=== PATIENT | female | born 1960 | race African-American/Black ===

== ENCOUNTER 2024-03-11 18:35 | Emergency (ER) | payer OTHER ==
[~2024-03-11] VITALS: Ht 167.6 cm; Wt 86.0 kg
--- NOTE | 2024-03-11 19:28 | DVH ---
CHEST RADIOGRAPH Indication: gen weakness Technique: Single frontal view of the chest was obtained Comparison: None FINDINGS: Lines and Tubes: Left subclavian approach port-A-Cath terminating over the proximal SVC. Lungs: Opacities of right mid and lower lung zone and left lower lung zone. Pleura: No effusion. No pneumothorax. Cardiomediastinal contours: Mild cardiomegaly with mild atherosclerotic calcification and uncoiling o f the aorta. Bones: No acute osseous abnormality. IMPRESSION: Right mid and lower lung zone with left lower lung zone opacities which may represent pneumonia in th e right clinical setting. Left subclavian approach port-A-Cath terminating over the proximal SVC.
--- NOTE | 2024-03-11 19:33 | ED.PDOC ---
History of Present Illness HPI Comments 63-year-old female came to emergency room via EMS for flu-like symptoms. Patient has history of asthma and sickle cell disease, states for the past week she has been feeling weak and lethargic, has been having flu-like symptoms, including myalgia, headaches, dizziness, nausea, vomiting, chest and abdominal discomfort. Chief Complaint: Flu like Time Seen by MD: 19:31 Primary Care Provider: UNKNOWN Reviewed Notes: Emblem Cutter Notes Allergies: Coded Allergies: Azithromycin (Verified Allergy, Unknown, 03/11/24) Information Source: Patient Mode of Arrival: EMS Severity: Moderate Timing: Days Duration: Intermittent Prehospital treatment: None Review of Systems REVIEW OF SYSTEMS: (+) fever, chills, fatigue HEENT: No sore throat, no earache, no congestion, no neck pain. Cardiac: No chest pain. No palpitations. Lungs: (+) shortness of breath, cough. GI: (+) nausea, vomiting, no diarrhea, no constipation, no abdominal pain : No dysuria, frequency, or urgency. No hematuria. Musculoskeletal: (+) joint pain , no joint swelling, no extremity edema. Skin: No rash, no itching. Neuro: (+) headache, dizziness, weakness Vital Signs Vital Signs Date Time Temp Pulse Resp B/P (MAP) Pulse Ox O2 Delivery O2 Flow Rate FiO2 03/12/24 04:00 67 23 101/48 (65) 97 03/12/24 00:00 98.0 98.0 03/11/24 22:20 Room Air* 0 21 Physical Exam General: Awake, appears lethargic No acute distress. Skin: Skin in warm, dry and intact. Appropriate color for ethnicity. Nailbeds pink with no cyanosis. HEENT: The head is normocephalic and atraumatic. Conjunctivae are clear without exudates or hemorrhage. Sclera is non-icteric. EOM are intact. No signs of nystagmus. Eyelids are normal in appearance without swelling or lesions. Oral mucosa is pink and moist Neck: The neck is supple with normal range of motion. No JVD. Cardiac: Heart rate and rhythm are normal. No murmurs, gallops, or rubs are auscultated. Respiratory: No signs of respiratory distress. Lung sounds are diminished bilaterally without rales, ronchi, or wheezes. Abdominal: Abdomen is soft, non-tender without distention. Bowel sounds are present and normoactive in all four quadrants. Extremities: Upper and lower extremities are atraumatic in appearance without d eformity or edema. Neurological: The patient is awake, alert and oriented to person, place, and time with normal speech. Speech is clear. There is no facial asymmetry. Psychiatric: Appropriate mood and affect. Good judgement and insight. No visual or auditory hallucinations. Past Medical History PAST MEDICAL HISTORY: Asthma Past Medical History (Other): Sickle cell disease, pulmonary hypertension Surgical History: Denies all surgeries INFORMATION ENGINEER History: Denies all INFORMATION ENGINEER Hx Family History Family History: Reviewed,noncontributory to illness Social History Smoker: Non-Smoker Alcohol: Denies ETOH Use Drugs: Denies Drug Use Lives In: Home Was a procedure done? Was a procedure done?: No Differential Dx Considerations may include: Anemia, electrolyte imbalance, viral syndrome, influenza, urinary tract infection, upper respiratory infection X-Ray, Labs, Meds, VS Vital Signs Date Time Temp Pulse Resp B/P (MAP) Pulse Ox O2 Delivery O2 Flow Rate FiO2 03/12/24 04:00 67 23 101/48 (65) 97 03/12/24 02:00 70 14 123/57 (79) 96 03/12/24 00:00 98.0 72 17 123/67 (85) 98 98.0 03/11/24 22:20 72 16 98 Room Air* 0 21 03/11/24 22:20 97.7 72 16 123/66 (85) 98 97.7 03/11/24 19:01 99.3 81 18 106/71 (83) 99 Lab Test 03/11/24 22:50 03/11/24 22:29 Range/Units White Blood Count 12.6 H 4.4-10.8 10^3/uL Red Blood Count 3.26 L 4.0-5.20 10^6/uL Hemoglobin 9.9 L 12.2-16.2 g/dL Hematocrit 29.1 L 36.0-46.0 % Mean Corpuscular Volume 89.3 80.0-100.0 fL Mean Corpuscular Hemoglobin 30.5 28.0-32.0 pg Mean Corpuscular Hemoglobin Concent 34.2 32.0-36.0 g/dL Red Cell Distribution Width 19.9 H 11.8-14.3 % Platelet Count 333 140-450 10^3/uL Mean Platelet Volume 7.9 6.9-10.8 fL Neutrophils (%) (Auto) 77.5 37.0-80.0 % Lymphocytes (%) (Auto) 11.9 10.0-50.0 % Monocytes (%) (Auto) 5.1 0.0-12.0 % Eosinophils (%) (Auto) 3.3 0.0-7.0 % Basophils (%) (Auto) 2.2 H 0.0-2.0 % Neutrophils # (Auto) 9.7 H 1.6-8.6 10 ^3/uL Lymphocytes # (Auto) 1.5 0.4-5.4 10 ^3/uL Monocytes # (Auto) 0.6 0-1.3 10 ^3/uL Eosinophils # (Auto) 0.4 0-0.8 10 ^3/uL Basophils # (Auto) 0.3 H 0-0.2 10 ^3/uL Nucleated Red Blood Cells 5.5 % Platelet Estimate [place] Large Platelets Few Target Cells Few Ovalocytes Few Schistocytes Few Sodium Level 136 136-145 mmol/L Potassium Level 4.4 3.5-5.1 mmol/L Chloride Level 106 98-107 mmol/L Carbon Dioxide Level 17 L 20-31 mmol/L Anion Gap 13 5-15 Blood Urea Nitrogen 44 H 9-23 mg/dL Creatinine 3.68 H 0.550-1.02 mg/dL Glomerular Filtration Rate Calc 13 >90 mL/min BUN/Creatinine Ratio 12.0 10.0-20.0 Serum Glucose 209 H 74-106 mg/dL Lactic Acid Level 1.5 0.4-2.0 mmol/L Calcium Level 9.0 8.7-10.4 mg/dL Magnesium Level 2.3 1.6-2.6 mg/dL Total Bilirubin 0.8 0.2-1.0 mg/dL Aspartate Amino Transferase (AST) 66 H 13-40 U/L Alanine Aminotransferase (ALT) 24 7-40 U/L Alkaline Phosphatase 113 46-116 U/L Troponin I High Sensitivity 4 </=34 ng/L Total Protein 7.8 5.7-8.2 g/dL Albumin 3.9 3.2-4.8 g/dL Plasma/Serum Blood Alcohol < 3.0 <10 mg/dL Influenza Type A Antigen Positive Negative Influenza Type B Antigen Negative Negative SARS-CoV-2 Antigen (Rapid) Negative NEGATIVE Current Medications Medications (Trade) Dose Ordered Sig/Nidhi Route Start Time Stop Time Status Last Admin Sodium Chloride 1,000 ml @ 1,000 mls/hr Q1H ONCE IV 03/11/24 19:00 03/11/24 19:59 DC 03/11/24 23:19 Ceftriaxone Sodium 50 ml @ 100 mls/hr ONCE ONCE IV 03/11/24 21:00 03/11/24 21:29 DC 03/11/24 23:19 Ondansetron HCl (Zofran) 4 mg ONCE ONCE IV 03/11/24 23:15 03/11/24 23:16 DC 03/11/24 23:19 Acetaminophen/ Hydrocodone Bitart ([place] 5/325MG Tab) 1 tab ONCE ONCE PO 03/11/24 23:30 03/11/24 23:31 DC 03/11/24 23:53 Sodium Chloride 1,000 ml @ 130 mls/hr Q7H42M ONCE IV 03/12/24 01:30 03/12/24 09:11 03/12/24 01:37 CHEST RADIOGRAPH Indication: gen weakness Technique: Single frontal view of the chest was obtained Comparison: None FINDINGS: Lines and Tubes: Left subclavian approach port-A-Cath terminating over the proximal SVC. Lungs: Opacities of right mid and lower lung zone and left lower lung zone. Pleura: No effusion. No pneumothorax. Cardiomediastinal contours: Mild cardiomegaly with mild atherosclerotic calcification and uncoiling of the aorta. Bones: No acute osseous abnormality. IMPRESSION: Right mid and lower lung zone with left lower lung zone opacities which may represent pneumonia in the right clinical setting. Left subclavian approach port-A-Cath terminating over the proximal SVC. X-Ray, Labs, Meds, VS Comment CHEST X-RAY: RIGHT LOWER LOBE PNEUMONIA Time of 1ST Reevaluation: 19:28 Reevaluation 1ST: Unchanged Patient Education/Counseling: Diagnosis, Treatment, Other (DIAGNOSIS AND RECOMMENDATION FOR ADMISSION) Family Education/Counseling: Diagnosis, Treatment Departure 1 Departure Time of Disposition: 20:49 Impression: Primary Impression: Right lower lobe pneumonia Additional Impressions: Acute renal failure Hyperglycemia Disposition: 02 SHORT TERM HOSPITAL Condition: Stable Comments 63-year-old female with a history of sickle cell disease and acute right lower lobe pneumonia. Antibiotics and IV fluids initiated in the emergency department. Discussed Dr. Russell with [facility] #[id number] Pending transfer to [facility] Extensive evaluation was performed in attempt to identify or rule out: (See differential diagnosis section) The following tests were ordered, and results were reviewed by me: (See diagnostic results section) The following test were independently interpreted by me: N/A I reviewed and agreed with the following test results read by other providers: N/A I reviewed the following notes from the pt's past medical encounters: (None available at this time) Additional information was gathered from interviewing the following independent historians: N/A Discussion of management or test interpretation with external physician/other qualified health child care education coordinator: N/A Addressed [ ]one or more chronic illnesses with severe exacerbation, progression, or side effects of treatment: [ ]an acute or chronic illness that poses a threat to life or bodily function: [ ] Decision regarding hospitalization or escalation of hospital level of care: Risk and benefits of admission for further treatment of patient's condition was considered. Due to patient's current clinical condition, high risk of decline and poor outcome if discharged and need for further inpatient management and monitoring, patient will be admitted to the hospital. Drug therapy requiring intensive monitoring for toxicity: N/A Parenteral controlled substances: N/A Decision regarding elective major surgery with identified patient or procedure risk factors: N/A Decision regarding emergency major surgery: N/A Decision not to resuscitate or to de-escalate care because of poor prognosis: N/A Diagnosis or treatment significantly limited by social determinants of health: N/A Decision regarding hospitalization or escalation of hospital level of care: Risks and benefits of admission for further treatment of patient's condition was considered however due to patient's stable condition patient will be discharged to follow up closely or return to care for worsening of condition or inability to follow up. Number & Complexity of Problems Addressed 1 acute or chronic illness that poses a threat to life or bodily function: Pneumonia, acute renal failure, hyperglycemia Extensive evaluation was performed to identify or rule out: Differential diagnoses considered includebut arenot limited to acute Bronchitis, Asthma, COPD, Pneumothorax, PE, CHF, Pulmonary HTN, Anemia, CO Poisoning, Methemoglobinemia, Hyperventilation, Metabolic Acidosis, Pulmonary Edema, Pneumonia, ACS, Pericardial Tamponade, Anxiety, other Amount and/or Complexity of Data to be Reviewed/Analyzed Tests reviewed: See diagnostic results section Documents reviewed: N/A Independent historian: Patient's sister at bedside Independent interpretation of tests: Chest x-ray, EKG Discussion of management or test interpretation with external physician/other qualified health child care education coordinator: Dr. Russell Risk of Complications and/or Morbidity or Mortality of Patient Management Patient was at high risk of morbidity from additional diagnostic testing or treatment Drug therapy requiring intensive monitoring for toxicity: N/A Decision regarding elective major surgery with identified patient or procedure risk factors: N/A Decision regarding emergency major surgery: N/A Decision regarding hospitalization or escalation of hospital level of care: Yes Decision not to resuscitate or to de-escalate care because of poor prognosis: N/A Parenteral controlled substances: N/A Critical Care Note Critical Care Time?: Yes (30 min-critical care time only) Critical care comment: Due to a high probability of clinically significant, life threatening deterioration, the patient required my highest level of preparedness to intervene emergently and I personally spent this critical care time directly and personally managing the patient. This critical care time included obtaining a history; examining the patient; pulse oximetry; ordering and review of studies; arranging urgent treatment with development of a management plan; evaluation of patient's response to treatment; frequent reassessment; and, discussions with other providers. This critical care time was performed to assess and manage the high probability of imminent, life-threatening deterioration that could result in multi-organ failure. It was exclusive of separately billable procedures and treating other patients and teaching time. Please see my other sections and the rest of the note for further information on patient assessment and treatment. Stability Stability form required: Yes I personally scribed for JOHANNY TREVIÑO MD ([email or web address]) on 03/11/24 at 19:33. Electronically submitted by Elfego Mcintyre ([email or web address]). I personally scribed for JOHANNY TREVIÑO MD ([email or web address]) on 03/11/24 at 19:48. Electronically submitted by Elfego Mcintyre ([email or web address]). JOHANNY TREVIÑO MD Mar 11, 2024 19:33
[2024-03-11 22:20] VITALS: PULSE 72; RESP 16; O2SAT 98
[2024-03-11 23:15] LABS: Basophils # (auto) 0.3 10 ^3/uL (0-0.2); Basophils % (auto) 2.2 % (0.0-2.0); Eosinophils # (auto) 0.4 10 ^3/uL (0-0.8); Eosinophils % (auto) 3.3 % (0.0-7.0); Hematocrit 29.1 % (36.0-46.0); Hemoglobin 9.9 g/dL (12.2-16.2); Lymphocytes # (auto) 1.5 10 ^3/uL (0.4-5.4); Lymphocytes % (auto) 11.9 % (10.0-50.0); Mean Corpuscular Hemoglobin 30.5 pg (28.0-32.0); Mean Corpuscular Hgb Conc. 34.2 g/dL (32.0-36.0); Mean Corpuscular Volume 89.3 fL (80.0-100.0); Monocytes # (auto) 0.6 10 ^3/uL (0-1.3); Monocytes % (auto) 5.1 % (0.0-12.0); Neutrophils # (auto) 9.7 10 ^3/uL (1.6-8.6); Neutrophils % (auto) 77.5 % (37.0-80.0); Nucleated Red Blood Cells % 5.5 %; Platelet Count (auto) 333 10^3/uL (140-450); Red Blood Cells 3.26 10^6/uL (4.0-5.20); Red Cell Distribution Width 19.9 % (11.8-14.3); White Blood Cell 12.6 10^3/uL (4.4-10.8)
[2024-03-11] MEDS: cefTRIAXone 1GM/50ML D5W 50 ML IV ONE (23:19)
[2024-03-11] MEDS: SODIUM CHLORIDE 0.9% 1,000 ML IV ONE (23:19)
[2024-03-11] MEDS: ONDANSETRON HCL 4 MG/2 ML VIAL IV ONE (23:19)
[2024-03-11 23:39] LABS: COVID19 ANTIGEN SOFIA FIA NEGATIVE (NEGATIVE)
[2024-03-11 23:40] LABS: Rapid Influenza B Negative (Negative)
[2024-03-11 23:41] LABS: Rapid Influenza A Positive (Negative)
[2024-03-11 23:43] LABS: Alanine Aminotransferase 24 U/L (7-40); Albumin 3.9 g/dL (3.2-4.8); Alkaline Phosphatase 113 U/L (46-116); Anion Gap 13 (5-15); Chloride 106 mmol/L (98-107); Magnesium 2.3 mg/dL (1.6-2.6); Potassium 4.4 mmol/L (3.5-5.1)
[2024-03-11 23:44] LABS: Bilirubin, Total 0.8 mg/dL (0.2-1.0); Carbon Dioxide 17 mmol/L (20-31); Sodium 136 mmol/L (136-145); Total Protein 7.8 g/dL (5.7-8.2)
[2024-03-11 23:45] LABS: Aspartate Aminotransferase 66 U/L (13-40); Blood Urea Nitrogen 44 mg/dL (9-23); Glucose 209 mg/dL (74-106)
[2024-03-11] MEDS: HYDROcodone-ACET 5/325MG TAB PO ONE (23:53)
[2024-03-12 00:45] LABS: Large Platelets FEW; Ovalocytes FEW; Platelet Estimate Adequa; Target Cell FEW
[2024-03-12] MEDS: SODIUM CHLORIDE 0.9% 1,000 ML IV ONE (01:37)
[2024-03-12] MEDS: HYDROcodone-ACET 5/325MG TAB PO ONE (07:14)
[2024-03-12 07:30] VITALS: PULSE 78; RESP 18; O2SAT 98
[2024-03-12 11:19] LABS: Phencyclidine Screen, Urine Neg (NEGATIVE)
[2024-03-12 11:27] VITALS: BP 138/69; PULSE 63; RESP 14; TEMP 98.6; O2SAT 98
[2024-03-12 11:28] LABS: Urine Bacteria FEW /hpf (None Seen); Urine Blood 1+ /uL (Negative); Urine Color Yellow (Yellow); Urine Protein, UAD 2+ (Negative); Urine Specific Gravity 1.015 (1.001-1.035); Urine Squamous Epithelial Cell FEW /hpf (<5); Urine Urobilinogen Normal (Negative); Urine WBC 83 /hpf (0 - 5); Urine pH 5.5 (5.0-9.0)
[2024-03-12 11:30] LABS: Amphetamine Screen, Urine Neg (NEGATIVE); Barbiturate Scree,Urine Neg (NEGATIVE); Benzodiazephine Screen, Urine Neg (NEGATIVE); Cannabinoid Screen, Urine Neg (NEGATIVE); Cocaine Screen, Urine Neg (NEGATIVE); Opiate Scree,Urine Pos (NEGATIVE)
[2024-03-12 11:33] LABS: Urine Clarity Cloudy (Clear)
== END 2024-03-12 11:57 | disposition short-term general hospital (02) ==
LOC: ER 18:35 → EDBD 18:35 → ER 03-12 11:57
DX: J18.9 Pneumonia, unspecified organism (principal); N17.9 Acute kidney failure, unspecified; R73.9 Hyperglycemia, unspecified; I27.20 Pulmonary hypertension, unspecified; J45.909 Unspecified asthma, uncomplicated; D57.1 Sickle-cell disease without crisis; M79.10 Myalgia, unspecified site; R51.9 Headache, unspecified; R53.1 Weakness; R11.2 Nausea with vomiting, unspecified; R42 Dizziness and giddiness; Z88.1 Allergy status to other antibiotic agents; Z20.822 Contact with and (suspected) exposure to COVID-19
CPT/HCPCS: 36415; 71045; 80053; 80307; 80320; 81001; 83605; 83735; 84484; 85025; 87040; 87426; 87804; 96361; 96365; 96375; 99291; J0696; J2405; J7030